=== PATIENT | male | born 1995 | race Hispanic/Latino ===

== ENCOUNTER 2025-01-30 15:04 | Emergency (ER) | payer SELFPAY ==
[~2025-01-30] VITALS: Ht 172.7 cm; Wt 54.4 kg
[2025-01-30] MEDS ORDERED: KETO10TA2 PO (18:02)
--- NOTE | 2025-01-30 18:03 | ERN ---
ED Note History of Present Illness Stated Complaint: ABSCESS TO RT AXILLA X 2 MONTHS Chief Complaint: Abscess Time Seen by MD: 15:11 Time Seen by Midlevel: 15:15 Dictation: 29-year-old with no past medical history of pain to the right axilla that rad iates to the shoulder. Patient states this has been going on for the last two months. 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 Denies having any fever, nausea or vomiting, discharged to that area. Allergies: Coded Allergies: No Known Allergies (Unverified Allergy, Unknown, 01/30/25) Past Medical History Past Medical History: No Pertinent History Surgical History: None Review of System Dictation Constitutional: Negative for fever,chills, and weight loss Eyes: Negative for injury, pain,redness, and discharge ENT: Negative for injury,pain or swelling Cardiovascular: Negative for chest pain, palpitations, and edema Respiratory: Negative for shortness of breath, cough, and wheezing, Abdomen/GI: Negative for abdominal pain, nausea, vomiting, diarrhea, and constipation Back: Negative for injury and pain : Negative for injury, bleeding and discharge MS/Extremity: Negative for injury and deformity, pain to the right axilla radiating to the right shoulder Skin: Negative for rash, and discoloration Neuro: Negative for headache, weakness, numbness, tingling, and seizure Psych: Negative for suicide ideation, homicidal ideation, and hallucinations Review of Systems: was completed Initial Vital Sign VS Vital Signs Date Time Temp Pulse Resp B/P (MAP) Pulse Ox O2 Delivery O2 Flow Rate FiO2 01/30/25 15:07 98.8 98 16 128/82 98 Room Air 0 Physical Exam Dictation General: awake, alert, NAD Head/Face: Normocephalic, atraumatic Eyes: PERRL, EOMI, vision at baseline ENT: oral cavity clear, TMs clear, no signs of infection Neck: Trachea midline, supple, no nuchal rigidity Cardiovascular: RRR, normal S1/S2, No MRGs, no JVD Respiratory: CTAB, no respiratory distress, No rales or wheezes Abdomen: Soft, non-tender, non-distended, normal bowel sounds, no guarding or rebound. Skin: Warm, dry, normal turgor, no rash, assess the right axilla, there is no redness, no swelling, no induration, no folliculitis, no evidence of any infectious process no lymphadenopathy MS/Extremity: Pulses equal, no cyanosis, neurovascular intact, FROM Neuro: COAx4, GCS 15, strength 5/5, CN 2-12 intact, normal cerebellar exam, normal gait, Psych: Normal behavior, mood, and affect normal ED Course ED Course Orders Procedure Category Date Status Time Us Soft Tissue Axilla US 01/30/25 Taken 15:17 Ketorolac PHA 01/30/25 Complete Tromethamine 15mg/Ml 15:19 Current Medications Medications (Trade) Dose Ordered Sig/Clau Route PRN Reason Start Time Stop Time Status Last Admin Dose Admin Ketorolac Tromethamine (toRADol) 15 mg ONCE STAT IM 01/30/25 15:19 01/30/25 15:22 DC 01/30/25 15:32 Vital Signs Date Time Temp Pulse Resp B/P (MAP) Pulse Ox O2 Delivery O2 Flow Rate FiO2 01/30/25 15:07 98.8 98 16 128/82 98 Room Air 0 Medical Decision Making MDM MDM: 29-year-old with no past medical history of pain to the right axilla that radiates to the shoulder. Patient states this has been going on for the last two months. 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 Denies having any fever, nausea or vomiting, discharged to that area. Preliminary report of the ultrasound shows no abscess. Discussed with the patient this could be more musculoskeletal versus an infectious process. Educated that he needs to follow up outpatient with PCP return to the hospital as needed. Patient verbalized understanding, answered all questions . Differential diagnosis: Abscess, lymphadenopathy, folliculitis, cellulitis Rationale: Tests considered and ordered secondary to shared decision making include: Previous outside records reviewed: Old ER visits. Risk of complication and/or morbidity or mortality of patient management: None Medications-Per medication reconciliation Need for hospitalization: Patient does not meet criteria for hospitalization. Need for emergency major/minor surgery: No There are no social concerns with this patient. Prescription drug management Prescriptions will include symptomatic care Patient's prior external medical records from other ER visits were reviewed by me as indicated. Prior testing and results from previous visits were reviewed. Prior tests were taken into account with medical decision making and resource utilization, independent historian/historians were used to obtain complete medical history. I independently interpreted the test that were performed, results were reviewed by me and considered findings on radiology if ordered. Medical management and examination interpretation discussions were had by me with other qualified healthcare professionals as indicated for the patient's care. DX & DISP Disposition: Discharge Departure Impression: Primary Impression: Pain in right axilla Condition: Stable Scripts Ketorolac Tromethamine (Ketorolac Tromethamine) 10 Mg Tablet 1 TAB PO Q6HPRN PRN for pain for 3 Days, #12 TAB 0 Refills Prov: MIKY SHELDON [facility] 01/30/25 Additional Instructions: If you develop any redness, swelling, drainage, fevers, nausea vomiting please return back to the emergency room. Otherwise follow up with your primary doctor in 1-2 days. Referrals: SELF,REFERRAL (PCP) Time of Disposition: 18:02 I have reviewed the case, and I agree with, Diagnosis and Plan MIKY SHELDON NP Jan 30, 2025 18:03
[2025-01-30 18:09] VITALS: BP 121/74; PULSE 88; RESP 16; TEMP 98.7; O2SAT 98
--- NOTE | 2025-02-01 12:22 | HMCIMG ---
COMPARISON:none FINDINGS: The right axilla were evaluated. No cysts or solid masses are identified. There is no evidence for axillary lymphadenopathy. CONCLUSION: Normal right axilla sonogram.
== END 2025-01-30 18:21 | disposition home or self-care (01) ==
LOC: EDH 15:04
DX: M79.621 Pain in right upper arm (principal)
CPT/HCPCS: 99285; 76882; 96372; J1885